=== PATIENT | female | born 1955 | race Caucasian/White ===

== ENCOUNTER 2018-08-22 15:54 | Inpatient (IN) | payer BC ==
[~2018-08-22] VITALS: Ht 154.9 cm; Wt 60.6 kg
[2018-08-22] MEDS ORDERED: SODIUM CHLORIDE 0.9% 1,000ML IVBOLUS ONE (16:00)
[2018-08-22] MEDS ORDERED: ACETAMINOPHEN 500 MG TABLET PO ONE (16:00)
[2018-08-22] MEDS ORDERED: ACETAMINOPHEN 500 MG TABLET ONE (16:19)
[2018-08-22] MEDS ORDERED: PLEASE ENTER HEIGHT AND WEIGHT MC SCH (16:30)
[2018-08-22] MEDS ORDERED: PLEASE ENTER ALLERGIES MC SCH (16:30)
[2018-08-22 16:41] LABS: BASOPHILS # (AUTO) 0.01 x10^3/uL (0-0.1); BASOPHILS % (AUTO) 0 % (0-1); EOSINOPHILS % (AUTO) 4 % (1-7); LYMPHOCYTES % (AUTO) 19 % (22-44); MD NO; MEAN CORPUSCULAR HEMOGLOBIN 30.8 pg (27.0-34.8); MEAN CORPUSCULAR HGB CONC 34.4 g/dL (32.4-35.8); MEAN CORPUSCULAR VOLUME 89.5 fL (80-100); MEAN PLATELET VOLUME 6.9 fL (7.4-10.4); MONOCYTES # (AUTO) 0.34 x10^3/uL (0.2-0.8); MONOCYTES % (AUTO) 7 % (2-9); NEUTROPHILS # (AUTO) 3.64 x10^3/uL (1.8-6.8); NEUTROPHILS % (AUTO) 70 % (42-75); PLATELET COUNT 176 x10^3/uL (130-400); RED BLOOD COUNT 4.58 x10^6/uL (3.82-5.3); RED CELL DISTRIBUTION WIDTH 12.4 % (9.6-15.2)
[2018-08-22 16:48] LABS: ALBUMIN 3.6 g/dL (3.4-5.0); ANION GAP 8 mmol/L (5-15); CALCIUM 8.5 mg/dL (8.5-10.1); CHLORIDE 107 mmol/L (98-107); CREATININE 0.89 mg/dL (0.55-1.02)
[2018-08-22] MEDS ORDERED: CEFTRIAXONE PMX 1GM/50ML 50 ML IV ONE (17:00)
[2018-08-22] MEDS ORDERED: AZITHROMYCIN 500 MG in SODIUM CHLORIDE 0.9% 250 ML IV ONE (17:00)
[2018-08-22] MEDS ORDERED: CEFTRIAXONE PMX 1GM/50ML 50 ML ONE (17:08)
[2018-08-22] MEDS ORDERED: SODIUM CHLORIDE FLUSH 10ML SYR IVF PRN (20:00)
[2018-08-22] MEDS ORDERED: hydrALAzine 20 MG/ML, 1ML IVPush PRN (20:00)
[2018-08-22] MEDS ORDERED: DOCUSATE 100 MG CAPSULE PO PRN (20:00)
[2018-08-22] MEDS ORDERED: morphine SULFATE 10 MG/ML, 1ML IVPush PRN (20:00)
[2018-08-22] MEDS ORDERED: CEFTRIAXONE 1,000 MG in SODIUM CHLORIDE 0.9% 50 ML IV ONE (20:00)
[2018-08-22] MEDS ORDERED: BISACODYL 10 MG SUPP PR PRN (20:00)
[2018-08-22] MEDS ORDERED: POLYETHYLENE GLYCOL 17 GM PACKET PO PRN (20:00)
[2018-08-22] MEDS ORDERED: ONDANSETRON ODT 4 MG PO PRN (20:00)
[2018-08-22] MEDS: AZITHROMYCIN 500 MG in SODIUM CHLORIDE 0.9% 250 ML IV SCH (20:00)
[2018-08-22] MEDS ORDERED: ONDANSETRON 2MG/ML, 2ML IVPush PRN (20:00)
[2018-08-22] MEDS ORDERED: PROMETHAZINE 25 MG/ML, 1ML IM PRN (20:00)
[2018-08-22 20:43] LABS: FREE T4 (FREE THYROXINE) 0.87 ng/dL (0.76-1.46); THYROID STIMULATING HORMONE 0.852 mIU/L (0.358-3.740)
[2018-08-22 21:39] VITALS: BP 104/65
[2018-08-22] MEDS: GUAIFENESIN ER 600 MG TABLET PO SCH (21:43)
[2018-08-22] MEDS: SODIUM CHLORIDE 0.9% 1,000 ML IV SCH (21:43)
[2018-08-22 22:16] LABS: HEMOGLOBIN A1C 5.3 % (4.2-6.3)
[2018-08-23 00:06] VITALS: BP 111/67
[2018-08-23] MEDS ORDERED: OMNIPAQUE 350 MG/ML, 100ML BOTTLE ONE (01:04)
[2018-08-23 05:21] LABS: BASOPHILS # (AUTO) 0.01 x10^3/uL (0-0.1); BASOPHILS % (AUTO) 0 % (0-1); EOSINOPHILS # (AUTO) 0.27 x10^3/uL (0-0.4); EOSINOPHILS % (AUTO) 6 % (1-7); LYMPHOCYTES # (AUTO) 1.43 x10^3/uL (1-3.4); LYMPHOCYTES % (AUTO) 33 % (22-44); MD NO; MEAN CORPUSCULAR HGB CONC 34.5 g/dL (32.4-35.8); MEAN CORPUSCULAR VOLUME 89.8 fL (80-100); MEAN PLATELET VOLUME 6.5 fL (7.4-10.4); MONOCYTES # (AUTO) 0.45 x10^3/uL (0.2-0.8); MONOCYTES % (AUTO) 11 % (2-9); NEUTROPHILS # (AUTO) 2.13 x10^3/uL (1.8-6.8); NEUTROPHILS % (AUTO) 50 % (42-75); PLATELET COUNT 154 x10^3/uL (130-400); RED BLOOD COUNT 3.94 x10^6/uL (3.82-5.3); RED CELL DISTRIBUTION WIDTH 12.7 % (9.6-15.2)
[2018-08-23 05:33] LABS: CHLORIDE 110 mmol/L (98-107)
[2018-08-23 05:41] LABS: ALANINE AMINOTRANSFERASE 11 U/L (12-78); ALKALINE PHOSPHATASE 69 U/L (45-117); ANION GAP 7 mmol/L (5-15); BILIRUBIN,TOTAL 0.6 mg/dL (0.2-1.0); CALCIUM 8.2 mg/dL (8.5-10.1); CHOL/HDL RATIO 2.3; CHOLESTEROL, TOTAL 142 mg/dL (140-239); CREATININE 0.74 mg/dL (0.55-1.02); HDL CHOL % 44 % (28-40); HDL CHOLESTEROL (DIRECT) 62 mg/dL (40-60); LDL CHOLESTEROL,CALCULATED 65 mg/dL (54-169); TOTAL PROTEIN 6.5 g/dL (6.4-8.2); TRIGLYCERIDES 76 mg/dL (50-200); VLDL CHOLESTEROL 15 mg/dL (0-25)
[2018-08-23 07:52] VITALS: BP 110/72
[2018-08-23] MEDS: SODIUM CHLORIDE 0.9% 1,000 ML IV SCH (08:00)
[2018-08-23 09:15] VITALS: BP 128/58
[2018-08-23] MEDS: GUAIFENESIN ER 600 MG TABLET PO SCH (09:46)
[2018-08-23 11:25] LABS: MICROSCOPIC NOT IND
[2018-08-23 11:48] LABS: CULTURE INDICATED? NO
[2018-08-23] MEDS: HEPARIN 5,000 UNITS/ML, 1ML SQ SCH ×2 (12:00→19:55)
[2018-08-23 13:14] VITALS: BP 114/67
[2018-08-23 14:00] VITALS: BP 109/66
[2018-08-23] MEDS: CEFTRIAXONE PMX 2GM/50ML 50 ML IV SCH (17:58)
[2018-08-23 18:34] VITALS: BP 129/69
[2018-08-23] MEDS: AZITHROMYCIN 500 MG in SODIUM CHLORIDE 0.9% 250 ML IV SCH ×2 (19:50→22:29)
[2018-08-24 01:48] VITALS: BP 93/59
[2018-08-24] MEDS: ACETAMINOPHEN 325 MG TABLET PO PRN ×3 (05:16→22:40)
[2018-08-24] MEDS: HEPARIN 5,000 UNITS/ML, 1ML SQ SCH ×3 (05:17→19:49)
[2018-08-24 08:46] VITALS: BP 112/75
[2018-08-24 13:47] VITALS: BP 118/75
[2018-08-24] MEDS: CEFTRIAXONE PMX 2GM/50ML 50 ML IV SCH (19:51)
[2018-08-24 20:27] VITALS: BP 131/76
[2018-08-24] MEDS: AZITHROMYCIN 500 MG in SODIUM CHLORIDE 0.9% 250 ML IV SCH (22:40)
[2018-08-25] MEDS: HEPARIN 5,000 UNITS/ML, 1ML SQ SCH ×2 (03:21→11:18)
[2018-08-25 03:46] VITALS: BP 103/72
[2018-08-25 08:05] VITALS: BP 131/89
[2018-08-25] MEDS: ACETAMINOPHEN 325 MG TABLET PO PRN (10:26)
[2018-08-25] MEDS ORDERED: DOXY100C2 PO (11:07)
[2018-08-25] MEDS ORDERED: ONDA4TAB13 PO (11:07)
[2018-08-25] MEDS ORDERED: DOXYCYCLINE 100MG CAP PO ONE (11:30)
== END 2018-08-25 13:20 | disposition home or self-care (01) | DRG 871 ==
LOC: ED 19:35 → EDIP 19:46 → 3NE 21:15 → DCLOUNGE 08-25 13:07
PROVIDERS: ADMIT Internal Medicine; ATTEND Internal Medicine
DX: A41.9 Sepsis, unspecified organism (principal); J15.9 Unspecified bacterial pneumonia; F39 Unspecified mood [affective] disorder; Z80.0 Family history of malignant neoplasm of digestive organs; Z85.3 Personal history of malignant neoplasm of breast; Z90.13 Acquired absence of bilateral breasts and nipples; Z92.21 Personal history of antineoplastic chemotherapy; Z92.3 Personal history of irradiation; Z90.721 Acquired absence of ovaries, unilateral; Z88.8 Allergy status to other drugs, medicaments and biological substances
CPT/HCPCS: 36415; 71045; 71275; 80048; 80053; 80061; 81003; 82040; 83036; 83605; 83735; 84145; 84439; 84443; 85025; 87040; 87070; 87081; 87205; 93005; G0378; J0456; J0696; J1644; Q9967; J7030; J7050